=== PATIENT | female | born 2000 | race American Indian/Alaskan Native ===

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

== ENCOUNTER 2019-12-25 12:21 | Emergency (ER) | payer SELFPAY ==
--- NOTE | 2019-12-25 14:40 | Event Note ---
ED Screening Note ED Screening Note: states she had a normal menstrual cycle in November 14 states she was previously on depo and now has irregular cycles states that a few days ago she took at home tests and states they were positive states she was having light spotting last night lower cramping PMHx none no allergies to meds /P:1/A:2 This initial assessment/diagnostic orders/clinical plan/treatment(s) is/are subject to change based on patients health status, clinical progression and re- assessment by fellow clinical providers in the ED. Further treatment and workup at subsequent clinical providers discretion. Patient/guardian urged not to elope from the ED as their condition may be serious if not clinically assessed and managed. Initial orders include: labs
[2019-12-25 14:58] LABS: Basophils # (Auto) 0.1 K/mm3 (0.0-0.1); Basophils % (Auto) 0.7 % (0.0-1.8); Eosinophils # (Auto) 0.1 K/mm3 (0.0-0.4); Eosinophils % (Auto) 1.3 % (0.0-4.3); Hematocrit 40.4 % (30.3-42.9); Hemoglobin 13.1 gm/dl (10.1-14.3); Lymphocytes # (Auto) 2.8 K/mm3 (1.2-5.4); Lymphocytes % (Auto) 33.7 % (13.4-35.0); Mean Corpuscular HGB Conc 33 % (30-34); Mean Corpuscular Volume 85 fl (79-97); Monocytes # (Auto) 0.5 K/mm3 (0.0-0.8); Monocytes % (Auto) 6.1 % (0.0-7.3); Platelet Count 263 K/mm3 (140-440); Red Blood Count 4.78 M/mm3 (3.65-5.03); Red Cell Distribution Width 14.2 % (13.2-15.2)
--- NOTE | 2019-12-25 15:05 | Emergency Department Report ---
HPI - General Chief Complaint: Vaginal Bleeding Time Seen by Provider: 12/25/19 14:38 - HPI HPI: This is a 19-year-old female presents to the emergency department with a complaint of bleeding while suspicion of being . Patient's last menstrual cycle was 11/15/2019 and lasted about 1.5 weeks. At the beginning of her menstrual cycle the patient took 1 OCP from her home country of the [facility] to try and decrease the menstrual symptoms. In the past few days the patient started to have some pelvic cramping and then last night had some vaginal s potting. She took a home test and said it was positive. This morning the patient was showering and said that she had a moderate sized blood clot come out and this is what brought her to the emergency department. The patient is currently she is G4, P1 with one live child and 2 previous miscarriages. No [facility]. ED Past Medical Hx - Past Medical History Previous Medical History?: No Hx Hypertension: No Hx Diabetes: No Hx Deep Vein Thrombosis: No Hx Renal Disease: No Hx Sickle Cell Disease: No Hx Seizures: No Hx Asthma: No Hx HIV: No - Surgical History Past Surgical History?: No - Social History Smoking Status: Never Smoker Substance Use Type: None - Medications Home Medications: Home Medications Medication Instructions Recorded Confirmed Last Taken Type Vit-Fe Fumar-FA [ 1 tab PO QDAY #30 tablet 12/25/19 Unknown Rx Vitamin] ED Review of Systems ROS: Stated complaint: BLEEDING Other details as noted in HPI Comment: All other systems reviewed and negative Constitutional: denies: chills, fever Respiratory: denies: cough, shortness of breath Cardiovascular: denies: chest pain, palpitations Gastrointestinal: denies: nausea, vomiting Genitourinary: abnormal menses, other (pelvic cramping) Musculoskeletal: denies: back pain Skin: denies: rash, lesions Neurological: denies: headache, weakness Physical Exam - Physical Exam Vital Signs: Vital Signs 12/25/19 12/25/19 12:36 14:38 Temperature 99.2 F 99.2 F Pulse Rate 86 86 Respiratory 18 189 H Rate Blood Pressure 109/59 Blood Pressure 109/59 [Right] O2 Sat by Pulse 98 Oximetry Physical Exam: GENERAL: The patient is well-developed well-nourished. HENT: Normocephalic. Atraumatic. Patient has moist mucous membranes. EYES: Extraocular motions are intact. NECK: Supple. Trachea is midline. CHEST/LUNGS: Clear to auscultation. There is no respiratory distress noted. HEART/CARDIOVASCULAR: Regular. There is no tachycardia. ABDOMEN: Abdomen is soft, nontender. Patient has normal bowel sounds. SKIN: Skin is warm and dry. NEURO: The patient is awake, alert, and oriented. The patient is cooperative. Normal speech. MUSCULOSKELETAL: There is no tenderness or deformity. There is no evidence of acute injury. ED Course Vital Signs 12/25/19 12/25/19 12:36 14:38 Temperature 99.2 F 99.2 F Pulse Rate 86 86 Respiratory 18 189 H Rate Blood Pressure 109/59 Blood Pressure 109/59 [Right] O2 Sat by Pulse 98 Oximetry ED Medical Decision Making - Lab Data Result diagrams: 12/25/19 13:24 12/25/19 13:24 - Radiology Data Radiology results: report reviewed ULTRASOUND OBSTETRIC INDICATION / CLINICAL INFORMATION: vaginal bleeding, . TECHNIQUE: Transabdominal. COMPARISON: None available. FINDINGS: GESTATIONAL SAC: Well-defined oval shape and intrauterine in location. YOLK SAC: Only partially identified EMBRYO/FETUS: Not definitely identified ADNEXA: No significant abnormality. FREE FLUID: Minimum ADDITIONAL FINDINGS: No evidence of heart motion IMPRESSION: 1. Gestational sac without a definite yolk sac or pole, recommend clinical correlation and follow-up ultrasound examination - Medical Decision Making This patient presents to the emergency department with a complaint of vaginal bleeding with suspicion of being . She did have a positive home test just prior to arrival. Beta hCG was about 6700. Ultrasound was done that shows a gestational sac without definitive evidence of a yolk sac or pole. The patient only complains of some mild spotting at this time. Hemoglobin is within normal limits. Vital signs are reassuring. This could be an early versus a miscarriage. The patient will have a repeat beta- hCG done in about 3 to 5 days. If it is increasing appropriately then this may be an early and the patient should have a repeat ultrasound. If the beta-hCG is decreasing, this is most likely a threatened or impending miscarriage. She has been given multiple outpatient referrals for [facility] services, but will return to the ER with any worsening of her symptoms or with any acute distress. Critical Care Time: No Critical care attestation.: If time is entered above; I have spent that time in minutes in the direct care of this critically ill patient, excluding procedure time. ED Disposition Clinical Impression: Threatened miscarriage Qualifiers: Weeks of gestation: less than 8 weeks Qualified Code(s): Z3A.01 - Less than 8 weeks gestation of Disposition: DC-01 TO HOME OR SELFCARE Is pt being admited?: No Condition: Stable Instructions: Threatened Miscarriage (ED), (ED) Additional Instructions: Please follow-up in 3 to 5 days for a repeat hormone level, and potentially a repeat ultrasound. Your hormone level today was 6700. If you follow- up and the hormone level is increasing, this may be an early . If the hormone level is decreasing, this may be a miscarriage. Please follow-up at the closest emergency department with any worsening of your symptoms, including any increased vaginal bleeding, increased pelvic discomfort, or with any acute distress. Prescriptions: Vit-Fe Fumar-FA [ Vitamin] 1 tab PO QDAY #30 tablet Referrals: PRIMARY CARE [Primary Care Provider] - 3-5 Days [facility] [Provider Group] - 3-5 Days [facility] [Provider Group] - 3-5 Days [facility] [Provider Group] - 3-5 Days Time of Disposition: 19:27
[2019-12-25 15:10] LABS: Alanine Aminotransferase 14 units/L (7-56); Albumin 4.3 g/dL (3.9-5); Blood Urea Nitrogen 13 mg/dL (7-17); Calcium 9.5 mg/dL (8.4-10.2); Hemolysis Index 10
[2019-12-25 15:11] LABS: BUN/Creatinine Ratio 26
[2019-12-25 16:00] LABS: Bilirubin,Urine NEG (Negative); Blood,Urine MOD (Negative); Color,Urine Yellow (Yellow); Mucus,Urine FEW /HPF; Protein,Urine <15 mg/dL mg/dL (Negative); Urobilinogen,Urine < 2.0 mg/dL (<2.0)
--- NOTE | 2019-12-25 19:07 | Ultrasound Report ---
ULTRASOUND OBSTETRIC INDICATION / CLINICAL INFORMATION: vaginal bleeding, . TECHNIQUE: Transabdominal. COMPARISON: None available. FINDINGS: GESTATIONAL SAC: Well-defined oval shape and intrauterine in location. YOLK SAC: Only partially identified EMBRYO/FETUS: Not definitely identified ADNEXA: No significant abnormality. FREE FLUID: Minimum ADDITIONAL FINDINGS: No evidence of heart motion IMPRESSION: 1. Gestational sac without a definite yolk sac or pole, recommend clinical correlation and foll ow-up ultrasound examination Signer Name: Deuce Cornejo MD Signed: 12/25/2019 7:03 PM Workstation Name: [id number]
[2019-12-25 19:42] VITALS: BP 118/70
== END 2019-12-25 19:48 | disposition home or self-care (01) ==
LOC: ED 12:21
DX: O20.0 Threatened abortion (principal); Z79.899 Other long term (current) drug therapy; Z3A.01 Less than 8 weeks gestation of pregnancy
CPT/HCPCS: 36415; 76801; 76817; 80053; 81001; 84702; 85025; 86900; 86901

== ENCOUNTER 2020-05-05 19:50 | Outpatient (CLI) | payer SELFPAY ==
--- NOTE | 2020-05-05 22:19 | Ultrasound Report ---
ULTRASOUND OBSTETRIC LIMITED INDICATION / CLINICAL INFORMATION: Amniotic fluid levels. Clinical Gestational Age (GA): 24 weeks. 4 days COMPARISON: 12/25/2019 FINDINGS: HEART RATE (beats per minute): 145 AMNIOTIC FLUID INDEX (cm) = 13.2 (normal = 7-24 cm) PRESENTATION: Cephalic. ADDITIONAL FINDINGS: None. IMPRESSION: 1. No significant abnormality. Amniotic fluid index is within normal limits at 13.2 cm. Signer Name: Yg Caban MD Signed: 05/05/2020 10:14 PM Workstation Name: [id number]
[2020-05-05 22:41] LABS: Bilirubin,Urine NEG (Negative); Blood,Urine NEG (Negative); Color,Urine Yellow (Yellow); Mucus,Urine FEW /HPF; Protein,Urine <15 mg/dL mg/dL (Negative)
[2020-05-06 01:48] VITALS: BP 123/72
== END 2020-05-05 23:10 | disposition home or self-care (01) ==
LOC: TRG 19:50 → APU 20:00 → TRG 23:10
PROVIDERS: ATTEND Obstetrics & Gynecology
DX: O42.912 Preterm premature rupture of membranes, unspecified as to length of time between rupture and onset of labor, second trimester (principal); Z3A.24 24 weeks gestation of pregnancy
CPT/HCPCS: 59025; 76815; 81001

== ENCOUNTER 2020-08-09 09:44 | Outpatient (CLI) | payer OTHER ==
[2020-08-09 10:33] VITALS: BP 124/72
[2020-08-09] MEDS ORDERED: LACTATED RINGERS 1,000 ML IV ONE (11:30)
--- NOTE | 2020-08-09 15:20 | Ultrasound Report ---
ULTRASOUND OBSTETRIC LIMITED INDICATION / CLINICAL INFORMATION: Evaluate placental location and integrity. COMPARISON: Limited OB ultrasound dated 05/05/2020. FINDINGS: AMNIOTIC FLUID INDEX (cm) = 6.6 PRESENTATION: Cephalic. HEART RATE (beats per minute): 141 ADDITIONAL FINDINGS: The placenta is grade 2 and located right lateral/fundal without evidence of lif ting or separation. No fluid is seen along the scar from a prior . IMPRESSION: 1. Mildly decreased KELLI of 6.6 cm. 2. Additional findings as above. Signer Name: Vini Richardson MD Signed: 08/09/2020 3:15 PM Workstation Name: [id number]
--- NOTE | 2020-08-09 15:21 | Ultrasound Report ---
ULTRASOUND BIOPHYSICAL PROFILE INDICATION / CLINICAL INFORMATION: BPP. COMPARISON: OB ultrasound dated 05/05/2020. FINDINGS: BREATHING MOVEMENT = 2 GROSS BODY MOVEMENT = 2 TONE = 2 QUALITATIVE AMNIOTIC FLUID VOLUME = 2 TOTAL BIOPHYSICAL SCORE = 8/8 AMNIOTIC FLUID INDEX (cm) = 6.6 PRESENTATION: Cephalic. HEART RATE (beats per minute): 141 ADDITIONAL FINDINGS: None. IMPRESSION: 1. Biophysical Score = 8/8 Signer Name: Vini Richardson MD Signed: 08/09/2020 3:16 PM Workstation Name: [id number]
== END 2020-08-09 14:01 | disposition home or self-care (01) ==
LOC: TRG 09:44 → APU 10:16 → TRG 14:01
PROVIDERS: ATTEND Obstetrics & Gynecology
DX: Z34.93 Encounter for supervision of normal pregnancy, unspecified, third trimester (principal); Z3A.38 38 weeks gestation of pregnancy
CPT/HCPCS: 76815; 76819

== ENCOUNTER 2022-02-14 21:34 | Outpatient (CLI) | payer OTHER ==
[2022-02-14 21:49] VITALS: BP 116/65
[2022-02-14] MEDS ORDERED: LACTATED RINGERS 500 ML IV ONE (22:17)
[2022-02-14 22:35] LABS: Bilirubin,Urine NEG (Negative); Blood,Urine NEG (Negative); Color,Urine Yellow (Yellow); Protein,Urine <15 mg/dL mg/dL (Negative); Urobilinogen,Urine < 2 mg/dL (<2.0)
[2022-02-14 22:36] LABS: Bacteria,Urine 1+ /HPF (Negative); Mucus,Urine FEW /HPF
[2022-02-14] MEDS ORDERED: TERBUTALINE 1 MG/1 ML INJ SUB-Q SCH (23:00)
== END 2022-02-14 23:49 | disposition home or self-care (01) ==
LOC: APU 21:34 → TRG 21:34
PROVIDERS: ATTEND Student in an Organized Health Care Education/Training Program
DX: O62.9 Abnormality of forces of labor, unspecified (principal); O42.913 Preterm premature rupture of membranes, unspecified as to length of time between rupture and onset of labor, third trimester; Z3A.35 35 weeks gestation of pregnancy
CPT/HCPCS: 36415; 81001; 84112; J7120